=== PATIENT | male | born 1990 | race Caucasian/White ===

== ENCOUNTER 2025-06-01 11:41 | Inpatient (IN) | payer OTHER ==
[~2025-06-01] VITALS: Ht 185.4 cm; Wt 94.2 kg
[~2025-06-01 11:41] MED LIST: CITA20 PO; MONT10T PO; RISP2 PO
[2025-06-01] MEDS ORDERED: FentaNYL Citrate 50 MCG/ML 2 ML Injection IV ONE (12:10)
[2025-06-01] MEDS ORDERED: LORazepam 2 MG/ML 1ML Injection IV ONE (12:10)
[2025-06-01] MEDS ORDERED: BUSPIRONE HCL30 M6 PO (15:21)
[2025-06-01] MEDS ORDERED: ESCI20 PO (15:22)
[2025-06-01] MEDS ORDERED: LAMOTRIGINE100 M1 PO (15:22)
[2025-06-01] MEDS ORDERED: FAMO20 PO (15:23)
[2025-06-01] MEDS ORDERED: Prochlorperazine Edisylate 10 mg Vial IV PRN (15:25)
[2025-06-01] MEDS ORDERED: FLU VACC TS2025-26(6MOS UP)/PF 45 MCG/0.5 ML SYRINGE IM SCH (15:25)
[2025-06-01 17:50] VITALS: BP 148/88
--- NOTE | 2025-06-01 18:37 | NUR ---
NEW ADMIT PATIENT FROM ED @1800 CHEST-TUBE/THORAVENT IN RIGHT CHEST WALL. HOOKED UP TO OASIS CHAMBER AND WALL SUCTIONS -20. SLIGHT AIR LEAK NOTED. PATIENT DENIES SOB, CHEST PAIN. PATIENT LUNG SOUNDS ARE CLEAR WITH DIMINSHED SOUNDS IN RLL. ALL MEDS RECONCILED AND ORDERED FOR NIGHT TIME. PARENTS IN ROOM AT THIS TIME TO ASSIST WITH MEDICAL HX. 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 NAMES AND NUMBERS ARE ON BOARD IN ROOM. TELE ORDER IN PLACE AND CONT. PULSE OX PLACED. VSS. PATIENT IS ON RA AND SPO2 95-98% REPORTS MINOR PAIN IN RIGHT SHOULDER BLADE AREA. PATIENT IS TOLERATING REG DIET TRAY AND CALL LIGHT IS IN REACH AOX4. ABLE TO MAKE NEEDS KNOWN.
[2025-06-01 19:22] VITALS: BP 128/77
[2025-06-02 00:03] VITALS: BP 136/89
[2025-06-02 03:59] VITALS: BP 143/85
[2025-06-02 04:58] LABS: pH Blood Venous 7.46 (7.34-7.37)
--- NOTE | 2025-06-02 05:47 | NUR ---
SHIFT SUMMARY PT ADMITTED ON 06/01/25 FOR RIGHT SIDED PNEUMOTHORAX. VSS. PT DENIES PAIN. THORA VENT IN PLACE AND CONNECTED TO SUCTION VIA [employer] DEVICE WITH SCANT AMOUNT OF SEROSANGUINEOUS DRAINAGE NOTED. 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 CONTINUOUS PULSE OX IN PLACE, SPO2 96% ON RA. PT RESTING IN BED, RESPIRATIONS EVEN AND UNLABORED. NO SIGNS OF DISTRESS OBSERVED. CALL LIGHT WITHIN REACH.
[2025-06-02 08:04] VITALS: BP 141/89
--- NOTE | 2025-06-02 10:28 | NUR ---
DR LAWLER IN TO SEE PT.
[2025-06-02 13:38] VITALS: BP 133/82
[2025-06-02 14:22] VITALS: BP 132/84
--- NOTE | 2025-06-02 14:24 | NUR ---
DR CANO CLAMPED THORA VENT AT APPROX 1420. PT DENIES SOB OR CP/P.
--- NOTE | 2025-06-02 16:54 | NUR ---
THIS RN CALLED DR LAWLER REGARDING DENTAL HYGIENISTS CONCERNS REGARDING PT ORAL HEALTH. DR LAWLER RECOMMENDS F/U W/ PRIMARY CARE AND SEEING A DENTIST.
--- NOTE | 2025-06-02 17:33 | NUR ---
DISCHARGE NOTE PT IS A/OX4. PT IS TOLERATING PO INTAKE, DENIES N/V. VOIDING WELL, PASSING GAS. PT DENIES CHEST PAIN/ PRESSURE/ OR SOB. PT SATTING ABOVE 95% ON RA. PT IS IND IN ROOM, IV REMOVED. PT VERBALIZED UNDERSTANDING OF DC INSTRUCTIONS. VSS. PT DRESSED AND AWAITING RIDE.
--- NOTE | 2025-06-02 17:39 | NUR ---
PT DENIED WC RIDE OUT. PT AMBULATED TO RIDE AT 1740, DC INSTRUCTIONS AND PERSONAL BELONGINGS W/ PT.
== END 2025-06-02 17:42 | disposition home or self-care (01) | DRG 200 ==
LOC: ER 11:41 → SURS 15:20 → MEDS 15:20 → SURS 17:47
PROVIDERS: ADMIT Internal Medicine
PROC: 0W9930Z Drainage of Right Pleural Cavity with Drainage Device, Percutaneous Approach (ICD-10-PCS; principal; 2025-06-01)
DX: J93.83 Other pneumothorax (principal); F84.0 Autistic disorder; F39 Unspecified mood [affective] disorder; F12.90 Cannabis use, unspecified, uncomplicated; F41.9 Anxiety disorder, unspecified; J45.909 Unspecified asthma, uncomplicated; F32.A Depression, unspecified; Z79.899 Other long term (current) drug therapy
CPT/HCPCS: 32551; 36415; 71045; 82803; 94762; 96374; 96375; 99285-25; A9270; J2060; J3010